=== PATIENT | male | born 1985 | race Caucasian/White ===

== ENCOUNTER 2017-02-03 20:42 | Emergency (ER) | payer SELFPAY ==
--- NOTE | 2017-02-03 21:24 | ED Physician Chart ---
Chief Complaint/HPI - Patient Information Date Seen:: 02/03/17 History of Present Illness:: 2109 I was informed by nursing staff that pt just left without completion of this ER visit. I met with pt briefly when he first checked in to ensure that he was in stable condition. While pt was being triaged by nursing staff, I attended other patients at the ER. I was about to see pt soon after his triage was finished. Pt had already left and did not wait to be further evaluated by me. Pt reportedly was seen at another ER at [facility] yesterday for the same condition but was not satisfied with the treatment there. Pt was belligerent and used foul language while he was in triage room. Allergies:: Allergies Allergy/AdvReac Type Severity Reaction Status Date / Time No Known Allergies Allergy Verified 02/03/17 21:02 Family Medical History - Family Member Uncle Hx Family Diabetes: Yes ED Septic Shock - . Is Septic Shock (SBP<90, OR Lactate>4 mmol\L) present?: No Reassessment (Disposition) - Patient Disposition Discharge/Transfer:: Elope/AWOL ED Discharge Plan - Patient Disposition Admit/Discharge/Transfer: PATIENT ELOPED
== END 2017-02-03 21:05 | disposition left against medical advice (07) ==
LOC: ER 20:42
DX: R06.02 Shortness of breath (principal)